=== PATIENT | female | born 1980 | race Caucasian/White ===

== ENCOUNTER 2020-05-21 09:29 | Outpatient (CLI) | payer BC ==
--- NOTE | 2020-05-21 10:30 | MMO ---
Bilateral MAMMO Bilat Diag [facility]. CLINICAL HISTORY: Patient is 40 years old and is seen for diagnostic exam and palpable abnormality in the right breast. The patient has the following family history of breast cancer: maternal grandmother, 50'S. VIEWS: The views performed were: bilateral craniocaudal with tomosynthesis; bilateral mediolateral oblique with tomosynthesis; and bilateral mediolateral with tomosynthesis. FILMS COMPARED: The present examination has been compared to a prior imaging study performed at [facility] on 05/21/2020. This study has been interpreted with the assistance of computer-aided detection. MAMMOGRAM FINDINGS: Corresponding to the palpable area right breast is a sebaceous cyst confirmed on ultrasound. There are no suspicious masses, suspicious calcifications, or new areas of architectural distortion. IMPRESSION: THERE IS NO MAMMOGRAPHIC EVIDENCE OF MALIGNANCY. A ROUTINE FOLLOW-UP MAMMOGRAM AT AGE 42 IS RECOMMENDED. THE RESULTS OF THIS EXAM WERE SENT TO THE PATIENT. ACR BI-RADS Category 2 - Benign finding MAMMOGRAPHY NOTE: 1. A negative mammogram report should not delay a biopsy if a dominant of clinically suspicious mass is present. 2. Approximately 10% to 15% of breast cancers are not detected by mammography. 3. Adenosis and dense breasts may obscure an underlying neoplasm. Reported by: Max GUERRA Electonically Signed: [id number]
--- NOTE | 2020-05-21 10:31 | MMO ---
Right US Breast Limited Rt. CLINICAL HISTORY: Patient is 40 years old and is seen for . VIEWS: The views performed were: . FILMS COMPARED: The present examination has been compared to a prior imaging study performed at [facility] on 05/21/2020. This study has been interpreted with the assistance of computer-aided detection. RIGHT BREAST ULTRASOUND FINDINGS: The breast tissue composition shows a homogeneous background echotexture with scattered areas of fibroglandular densities. High-resolution real-time ultrasound scanning was performed. 4 mm sebaceous cyst at the palpable marker. On ultrasound, no suspicious findings are identified. IMPRESSION: THERE IS NO MAMMOGRAPHIC EVIDENCE OF MALIGNANCY. A ROUTINE FOLLOW-UP MAMMOGRAM AT AGE 42 IS RECOMMENDED. THE RESULTS OF THIS EXAM WERE SENT TO THE PATIENT. ACR BI-RADS Category 2 - Benign finding MAMMOGRAPHY NOTE: 1. A negative mammogram report should not delay a biopsy if a dominant of clinically suspicious mass is present. 2. Approximately 10% to 15% of breast cancers are not detected by mammography. 3. Adenosis and dense breasts may obscure an underlying neoplasm. Reported by: Max GUERRA Electonically Signed: [id number]
== END 2020-05-21 09:30 | disposition home or self-care (01) ==
LOC: BICMAMMO 09:29
PROVIDERS: ATTEND Family Medicine
DX: N63.0 Unspecified lump in unspecified breast (principal)
CPT/HCPCS: 77066; G0279